=== PATIENT | male | born 1965 | race Caucasian/White ===

== ENCOUNTER 2020-03-03 16:34 | Emergency (ER) | payer BC, OTHER ==
[2020-03-03] MEDS ORDERED: Ondansetron 4 MG/2 ML SDV IVPUSH ONE (17:06)
[2020-03-03] MEDS ORDERED: Sodium Chloride 0.9% 10 ML Syringe FLUSH PRN (17:06)
[2020-03-03] MEDS ORDERED: Ketorolac 30 MG/ML SDV IVPUSH SCH (17:15)
--- NOTE | 2020-03-03 17:23 | EDM.PDOC ---
ED HPI GENERAL MEDICAL PROBLEM - General Chief Complaint: Abdominal Pain Stated Complaint: ABDOMINAL PAIN Time Seen by Provider: 03/03/20 16:50 Source of Information: Reports: Patient, RN Notes Reviewed - History of Present Illness INITIAL COMMENTS - FREE TEXT/NARRATIVE: 54 year old male with sudden onset of abd pain while "driving to work" about an hr ago. The pain initially was quite intense, mid and lower mid abd, now starting to "ease off". No nausea, vomiting or diarrhea. Nl BM earlier today. Had a store bought Caesar Salad about 1 hr prior to onset of sx. Not sure what the expiration was, bought it about a week ago. Lower Abdominal Pain Score (Numeric/FACES): 6 - Related Data Allergies Allergy/AdvReac Type Severity Reaction Status Date / Time No Known Allergies Allergy Verified 03/03/20 16:44 Home Meds: Home Meds . [No Known Home Meds] 03/03/20 [History] Past Medical History - Past Health History Medical/Surgical History: Denies Medical/Surgical History Social & Family History - Tobacco Use Smoking Status *Q: Never Smoker - Recreational Drug Use Recreational Drug Use: No ED ROS GENERAL - Review of Systems Review Of Systems: See Below Constitutional: Denies: Fever, Chills, Diaphoresis HEENT: Reports: No Symptoms Respiratory: Denies: Shortness of Breath Cardiovascular: Denies: Chest Pain GI/Abdominal: Reports: Abdominal Pain (now better). Denies: Constipation, Diarrhea, Hematochezia, Melena, Nausea, Vomiting Musculoskeletal: Reports: No Symptoms Skin: Reports: No Symptoms Neurological: Reports: No Symptoms ED EXAM, GI/ABD - Physical Exam Exam: See Below General Appearance: Alert, No Apparent Distress Head: Atraumatic Neck: Supple Respiratory/Chest: No Respiratory Distress, Lungs Clear, Normal Breath Sounds Cardiovascular: Regular Rate, Rhythm GI/Abdominal Exam: Soft, Tender (very mild tenderness upper mid abd, mid and lower abd completely soft and nontender). No: Guarding, Rebound Extremities: Normal Inspection, Normal Range of Motion Skin Exam: Warm, Dry, Normal Color Course - Vital Signs Last Recorded V/S: Last Vital Signs Temp 98.0 F 03/03/20 18:08 Pulse 73 03/03/20 18:08 Resp 18 03/03/20 18:08 BP 157/87 H 03/03/20 18:08 Pulse Ox 95 03/03/20 18:08 - Orders/Labs/Meds Orders: Active Orders 24 hr Category Date Time Status Peripheral IV Care [RC] . DIRECTED Care 03/03/20 17:07 Active Peripheral IV Insertion Adult [OM.PC] Stat Oth 03/03/20 17:06 Ordered Meds: Medications Discontinued Medications Generic Name Dose Route Start Last Admin Trade Name Freq PRN Reason Stop Dose Admin Ketorolac Tromethamine 30 mg 03/03/20 17:15 03/03/20 17:13 Toradol IVPUSH 30 mg ONETIME [place] Administration Ondansetron HCl 4 mg 03/03/20 17:06 03/03/20 17:14 Zofran IVPUSH 03/03/20 17:07 4 mg ONETIME ONE Administration Sodium Chloride 10 ml 03/03/20 17:06 03/03/20 16:45 Saline Flush FLUSH 10 ml ASDIRECTED PRN Administration Keep Vein Open Departure - Departure Time of Disposition: 17:54 Disposition: Home, Self-Care 01 Condition: Fair Clinical Impression: Abdominal pain - Discharge Information Instructions: Abdominal Pain, Adult, [id number] Referrals: PCP,None [Primary Care Provider] - Forms: ED Department Discharge Additional Instructions: clear liquids only for the next few hours, than very careful bland diet as tolerated. Consider starting a food diary for these episodes, what you had to eat and how long before each episode to see if there is a pattern. Return to ED if symptoms worsening in any way as discussed or if not continuing to go away as expected. Sepsis Event Note - Evaluation Sepsis Screening Result: No Definite Risk - Focused Exam Date Exam was Performed: 03/04/20 Time Exam was Performed: 07:21 - My Orders Last 24 Hours: My Active Orders 03/03/20 17:06 Peripheral IV Insertion Adult [OM.PC] Stat 03/03/20 17:07 Peripheral IV Care [RC] . DIRECTED - Assessment/Plan Last 24 Hours: My Active Orders 03/03/20 17:06 Peripheral IV Insertion Adult [OM.PC] Stat 03/03/20 17:07 Peripheral IV Care [RC] . DIRECTED
== END 2020-03-03 18:10 | disposition home or self-care (01) ==
LOC: JD.ED 16:34
DX: R10.10 Upper abdominal pain, unspecified (principal)
CPT/HCPCS: 96374; 96375; 99284; J1885; J2405; 99283